=== PATIENT | female | born 1940 | race Caucasian/White ===

== ENCOUNTER → 2024-05-30 | Outpatient (CLI) | payer MEDICARE, SELFPAY | END | disposition home or self-care (01) | LOC: OPBI 11:03 | PROVIDERS: PCP Family Medicine; Visit Provider Family Medicine | DX: Z12.31 Encounter for screening mammogram for malignant neoplasm of breast (principal) | CPT/HCPCS: 77063; 77067 ==

== ENCOUNTER → 2025-06-16 | Outpatient (CLI) | payer MEDICARE, OTHER, SELFPAY ==
--- NOTE | 2025-06-16 12:33 | BI_ITS ---
EXAM: SCORN MAMM (CAD) W/FLACO BILAT DATE: 06/16/2025 CLINICAL HISTORY: F, Age 85 y/o , SCREENING TECHNIQUE: Procedure Code: [id number] Modality: MG Procedure: SCRN MAMM (CAD)W/FLACO BILAT COMPARISON: Prior exam(s) dated 05/30/2024. FINDINGS: TISSUE DENSITY: There are scattered areas of fibroglandular density. Bilateral Breast Mammographic Findings: Benign-appearing round microcalcifications are seen in both breasts. Stable nodular densities are seen in both breasts. No suspicious masses, suspicious clustered microcalcifications, architectural distortion or secondary signs of malignancy is identified in either breast. BI/SCRN MAMM (CAD)W/FLACO BILAT IMPRESSION: Benign screening mammogram. OVERALL FINAL ASSESSMENT BI-RADS 2: BENIGN RECOMMENDATION: Routine annual follow-up in 1 Year Additional Recommendation none A letter with findings and recommendations will be mailed to the patient. Reading Location: [id number]
== END | disposition home or self-care (01) ==
PROVIDERS: PCP Family Medicine; Referring Provider Family Medicine; Visit Provider Family Medicine
DX: Z12.31 Encounter for screening mammogram for malignant neoplasm of breast (principal)
CPT/HCPCS: 77063; 77067